=== PATIENT | male | born 1950 | race African-American/Black ===

== ENCOUNTER 2017-12-26 14:43 | Emergency (ER) | payer SELFPAY ==
[~2017-12-26] VITALS: Ht 190.5 cm; Wt 127.0 kg
[2017-12-26] MEDS ORDERED: KETOROLAC 30MG/ML VIAL IV STA (15:21)
[2017-12-26] MEDS ORDERED: SODIUM CHLORIDE 0.9% 1,000 ML IV ONE (15:21)
[2017-12-26 16:19] LABS: BASOPHILS % 0.3 % (0.0-2.0); EOSINOPHILS % 1.6 % (0.0-5.0); HEMATOCRIT. 39.8 % (42.0-52.0); HEMOGLOBIN. 12.5 g/dL (14.0-18.0); LYMPHOCYTES % 17.8 % (20.0-50.0); MEAN CORPUSCULAR HEMOGLOBIN 24.9 pg (28.0-32.0); MEAN CORPUSCULAR VOLUME 78.8 fL (80.0-94.0); MONOCYTES % 10.5 % (2.0-8.0); NEUTROPHILS % 69.8 % (40.0-76.0); PLATELET 178 x1000/uL (130-400); RED BLOOD CELL COUNT 5.04 mill/uL (4.7-6.1); RED CELL DISTRIBUTION WIDTH 13.5 % (11.6-14.6)
[2017-12-26 16:28] LABS: CHLORIDE 105 mEq/L (98-107)
[2017-12-26 16:31] LABS: CLARITY URINE CLEAR (CLEAR); COLOR URINE YELLOW (YELLOW); KETONES URINE NEGATIVE (NEGATIVE); LEUKOCYTE ESTERASE URINE TRACE (NEGATIVE); NITRITE URINE POSITIVE (NEGATIVE); OCCULT BLOOD URINE NEGATIVE (NEGATIVE); PH URINE 5.5 (4.5-8.0); PROTEIN URINE NEGATIVE (NEGATIVE); SPECIFIC GRAVITY URINE 1.007 (1.005-1.030); UROBILINOGEN URINE 0.2 E.U./dL (0.2-1.0)
[2017-12-26] MEDS ORDERED: SULFAMETHOXAZOLE/TRIMETHOPRIM 400/80MG TAB PO ONE (17:15)
[2017-12-26 23:41] VITALS: BP 168/98
== END 2017-12-26 23:35 | disposition home or self-care (01) ==
LOC: ER 14:43
DX: N39.0 Urinary tract infection, site not specified (principal); N40.0 Benign prostatic hyperplasia without lower urinary tract symptoms; I10 Essential (primary) hypertension; E11.9 Type 2 diabetes mellitus without complications; Z87.891 Personal history of nicotine dependence
CPT/HCPCS: 36415; 51702; 71045; 74176; 80053; 81003; 82962; 83690; 83880; 84484; 85025; 87086; 93005; 96361; 96374; 99285; J1885; J7030; A4315

== ENCOUNTER 2018-01-05 13:59 | Emergency (ER) | payer SELFPAY ==
[~2018-01-05] VITALS: Ht 182.9 cm; Wt 122.0 kg
[2018-01-05 17:20] VITALS: BP 144/86
== END 2018-01-05 17:25 | disposition home or self-care (01) ==
LOC: ER 13:59
DX: Z46.6 Encounter for fitting and adjustment of urinary device (principal); E11.9 Type 2 diabetes mellitus without complications; I10 Essential (primary) hypertension
CPT/HCPCS: 99281